=== PATIENT | male | born 1965 | race Caucasian/White ===

== ENCOUNTER → 2016-11-03 | Outpatient (CLI) | payer OTHER ==
[~2016-11-03] MED LIST: ACIDOPHILUS1 EACH PO; AMLODIPINE10 M2; ASCORBIC ACID500 M2 PO; ASPIRIN EC81 MG PO; ATORVASTATIN CA20 MG PO; CARVEDILOL 25MG25 MG PO; CLOPIDOGREL75 MG PO; DIGOXIN0.125 MG PO; EDECRIN25 MG; FENOFIBRATE 54M54 MG; FERROUS FUMARA324 MG PO; GABAPENTIN 600600 MG PO; HUMALOG MIX75/253 ML; INSULIN GL100 UNITS1 SC; LEVITRA20 MG PO; LISINOPRIL 20MG20 MG PO; METFORMIN ER500 MG PO; NICOTINE PATCH;21 MG TD; RENAL-VITE TAB0.8 MG; SERTRALINE 50MG50 MG PO; VIAGRA100 MG PO; VITAMIN B PO; WARFARIN SOD5 MG PO
[2016-11-03 09:44] LABS: BUN 37 mg/dL (7-18)
[2016-11-03 09:49] LABS: GFR (ESTIMATED) 30 ML/MIN (>60)
== END ==
LOC: LAB 09:23
PROVIDERS: Internal Medicine
DX: E87.5 Hyperkalemia (principal); N18.9 Chronic kidney disease, unspecified; E11.9 Type 2 diabetes mellitus without complications

== ENCOUNTER → 2016-11-04 | Outpatient (CLI) | payer OTHER ==
[2016-11-04 10:45] LABS: BUN 33 mg/dL (7-18)
[2016-11-04 10:48] LABS: GFR (ESTIMATED) 33 ML/MIN (>60)
== END ==
LOC: LAB 10:24
PROVIDERS: Nurse Practitioner Family
DX: E11.9 Type 2 diabetes mellitus without complications (principal); Z79.4 Long term (current) use of insulin

== ENCOUNTER → 2017-03-02 | Outpatient (CLI) | payer OTHER ==
[2017-03-02 12:05] LABS: LYMPH # 1.9 K/mm3 (0.7-4.5); LYMPH % 22.5 % (10-50)
[2017-03-02 12:24] LABS: HEMOGLOBIN 12.5 g/dL (14.1-18.0)
[2017-03-02 12:55] LABS: BUN 41 mg/dL (7-18)
[2017-03-02 13:18] LABS: GFR (ESTIMATED) 23 ML/MIN (>60)
[2017-03-02 14:38] LABS: URINE BILIRUBIN - DIPSTICK NEGATIVE (NEG); URINE BLOOD 2+ (NEG)
== END ==
LOC: LAB 11:09
PROVIDERS: Internal Medicine Nephrology
DX: N18.4 Chronic kidney disease, stage 4 (severe) (principal)

== ENCOUNTER → 2017-03-19 | Outpatient (CLI) | payer MEDICARE ==
[2017-03-19 13:21] LABS: URINE BILIRUBIN - DIPSTICK NEGATIVE (NEG); URINE BLOOD 1+ (NEG)
[2017-03-19 13:50] LABS: LYMPH # 2.2 K/mm3 (0.7-4.5); LYMPH % 23.1 % (10-50)
[2017-03-19 13:55] LABS: HEMOGLOBIN 14.1 g/dL (14.1-18.0)
[2017-03-19 15:01] LABS: BUN 50 mg/dL (7-18)
[2017-03-19 15:12] LABS: GFR (ESTIMATED) 20 ML/MIN (>60)
== END ==
LOC: LAB 12:25
PROVIDERS: Internal Medicine Nephrology
DX: N18.4 Chronic kidney disease, stage 4 (severe) (principal); R82.90 Unspecified abnormal findings in urine

== ENCOUNTER → 2017-04-21 | Outpatient (CLI) | payer MEDICARE ==
[2017-04-21 13:31] LABS: HEMOGLOBIN 13.6 g/dL (14.1-18.0); LYMPH # 1.9 K/mm3 (0.7-4.5); LYMPH % 17.8 % (10-50)
[2017-04-21 16:34] LABS: BUN 58 mg/dL (7-18)
[2017-04-21 16:45] LABS: GFR (ESTIMATED) 22 ML/MIN (>60)
[2017-04-21 16:56] LABS: URINE BILIRUBIN - DIPSTICK NEGATIVE (NEG); URINE BLOOD 1+ (NEG)
--- NOTE | 2017-04-21 19:51 | RADIOLOGY REPORT PS360 ---
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 . generous color Doppler flow to both kidneys There is slight increased echogenicity of the cortex which likely is reflection of chronic medical intrinsic renal disease This feature yields a relatively hypoechoic appearance renal pyramids bilateral. Right kidney measures 12.5 cm in length x7.1 x 6.5 cm. left kidney 13.1 x 6.5 x 7 cm. Only note 1.2 cm benign-appearing renal cyst towards upper portion left kidney. No solid nor significant appearing renal mass IMPRESSION: Kidneys appear normal in size. No hydronephrosis. Small 1.2 cm cyst at the upper portion left kidney Cortex fairly well-maintained but with Slight increased echogenicity of throughout cortex bilaterally,, reflecting medical, intrinsic renal disease
== END ==
LOC: RAD 12:46
PROVIDERS: Internal Medicine Nephrology
DX: N18.4 Chronic kidney disease, stage 4 (severe) (principal)

== ENCOUNTER → 2017-06-21 | Outpatient (CLI) | payer MEDICARE ==
[2017-06-21 10:48] LABS: LYMPH # 1.7 K/mm3 (0.7-4.5); LYMPH % 20.3 % (10-50)
[2017-06-21 12:49] LABS: URINE BILIRUBIN - DIPSTICK NEGATIVE (NEG); URINE BLOOD TRACE-INTACT (NEG)
[2017-06-21 12:53] LABS: BUN 45 mg/dL (7-18)
[2017-06-21 12:54] LABS: GFR (ESTIMATED) 29 ML/MIN (>60)
== END ==
LOC: LAB 10:09
PROVIDERS: Internal Medicine Nephrology
DX: N18.4 Chronic kidney disease, stage 4 (severe) (principal)